=== PATIENT | male | born 1980 | race Caucasian/White ===

== ENCOUNTER 2016-12-29 16:26 | Emergency (ER) | payer MEDICAID ==
[~2016-12-29] VITALS: Ht 175.3 cm; Wt 70.0 kg
[2016-12-29] MEDS ORDERED: IBUPROFEN800 MG PO (17:21)
--- NOTE | 2016-12-29 17:21 | Urgent Treatment Center Report ---
History of Present Issue Date/Time Seen by Provider 12/29/16 1708 Visit Reason Pt arrived:Walked Presenting Problem:PT C/O LEFT KNEE PAIN. PT ADVISES HE WAS HELPING SOMEONE MOVE 3 DAYS AGO AND IT HAS BEEN INCREASING IN PAIN SINCE Location if Accident: Onset of symptoms date/time:/ or onset unknown for:MEDICAL HX UNKNOWN Have you (or family members/close friends) recently traveled outside the [place]? N If Yes, where/when: Have you had exposure to infectious disease within the past month? TB? Other? Specify: Patient state that he is having pain in his left knee area after he thinks he may have strained it helping a friend move 3-4 days ago. State that it started hurting then and has continued to get worse over the last 3 days ALLERGIES Coded Allergies: No Known Allergies (12/29/16) History Medical History General CAD? No Angina: No MS: No Hypertension? No Hyperlipidemia? No CHF? No DVT? No PE? No COPD? No Asthma? No Anemia? No GERD? No Gastric ulcers? No GI Bleed? No Hernia? No Thyroid Problems? No Hypothyroidism? No CVA? No Seizures? No Diabetes? No Renal Insuffiency? No UTI? No Stones? No BPH? No GB Disease: No Nephritic Syndrome? No Asplenia? No Hepatitis? No Sickle Cell Disease? No Arthritis? No Migraines? No Cataracts? No Glaucoma? No MRSA? No HIV? No TB? No Anxiety? No Depression? No Cancer? No More? No Immunization HX DT/Tetanus Unknown Surgical Hx Previous Surgery?N Social History Smoking Hx Smoker: Current Every Day Smoker Tobacco: Yes Type Cigarettes Alcohol Alcohol: No Review of Systems All Other Systems Reviewed and Negative Comment Pain in left knee for 3 days after helping someone move. Not sure if he may have pulled something but now having pain in knee when he bears weight that shoots up side of knee into leg Physical Exam Vital Signs Vital Signs Date Time Temp Pulse Resp B/P Pulse O2 O2 Flow FiO2 Ox Delivery Rate 12/29 1640 99.2 88 20 141/90 98 n (DICK OLIVEIRA, MARLENI) General Appearance normal appearance, WD/WN, no apparent distress Respiratory Status Yes: trachea midline, chest symmetrical, non tender chest. No: respiratory distress. Cardiovascular normal exam, regular rate/rhythm, no peripheral edema, no gallop Extremities Pain in left knee, no discoloration, no swelling noted Neurologic alert, cytogenetics laboratory manager II-XII nml as tested, normal exam, no motor/sensory deficits, oriented x 3 Comments denies injury, denies falling Medical Decision Making LABS/Meds/Orders Pt receiving controlled substance in ED? No Results/Orders Orders Procedure Date/time Status UTC STABILIZE JOINT/AREA 12/30 1715 Active KNEE-3 VIEWS-LT 12/29 1643 Active Departure Departure Time of Disposition 1715 Disposition DC Home or Self Care(routine) Clinical Impression Primary Impression: Knee pain Qualifiers: Laterality: left Chronicity: acute Qualified Code: M25.562 - Pain in left knee Condition STABLE Referrals Aubrey Mccall MD: 2 Days-Call Office Call for appointment if no improvement in symptoms or worsening of symptoms AGATA CARY, TITI SKINNER: 2 Days-Call Office Call for appointment if no improvement or worsening of knee pain Patient Instructions DI for Knee Pain Additional Instructions Follow up with family doctor Return if needed If no improvement or worsening of symptoms. call orthopedics for appointment and number for Dr Olivares and Dr Soler provided in discharge summary *RICE, Rest the extremity, Ice 15-20 minutes 3-4 times daily, Compress- wear the kit wrap as discussed as much as possible to help reduce swelling and pain, Elevate the extremity when at rest *Kit wrap is for support and help control swelling, use it except in the shower. Be sure that is not to tight but not to loose either *Elevate when resting *Ibuprofen 800mg every 6-8 hours as needed for pain an inflammation. If need something more can take Tylenol in between doses of Ibuprofen to help Immediately follow up for new or worsening of symptoms, or no noticeable improvement over the next 3-5 days Discharge Counseling Counseled pt/family regarding diagnosis, medications/RX, home care, follow up needs Prescriptions Current Visit Scripts Ibuprofen (Ibuprofen 800MG) 800 MG PO QIDP PRN pain #30 TAB at 3243
[2016-12-29 17:33] VITALS: BP 141/90
--- NOTE | 2016-12-30 08:18 | RADIOLOGY REPORT PS360 ---
KNEE-3 VIEWS-LT HISTORY: Left knee pain PAIN SINCE MOVING STUFF 3 DAYS AGO ORDERING PHYSICIAN: ARIEL JENNINGS APRN PATIENT AGE: 36 years COMPARISON: None FINDINGS: No fracture or dislocation. No lytic or blastic change. Normal mineralization. No significant arthritic changes evident. No other significant findings IMPRESSION: Negative left Knee
--- OUTSIDE RECORDS SUMMARY | 2017-01-05 03:38 | External Medical Summary Rpt ---
Author Author , Organization [employer] Address Unknown Phone Unavailable Care Team Providers Care Battery Engineer Name Role Phone [facility], Unavailable Unavailable [facility], KRISTI Unavailable Unavailable REG JADEN JEA, JADEN Unavailable Unavailable [facility] Unavailable Unavailable [facility], [facility], Unavailable Unavailable [facility] Purpose Continuity of Care Document - 02-12-2014 through 2016 Problems Code Diagnosis DOS Provider Status K529 NONINFECTIV 06-01-2015 [facility] E N EMERGENCY GASTROENTER PHYS ITIS & COLITIS UNS R1013 EPIGASTRIC 06-01[facility] [place] [facility] R1032 LEFT LOWER 06-01-2015 [facility] QU[facility] N EMERGENCY PAIN PHYS R110 NAUSEA 06-01-2015 [facility] N EMERGENCY PHYS 73328 UNSPECIFIED 02-12-2014 [facility] INFECTIVE N EMERGENCY OTITIS PHYS EXTERNA Procedures Procedure [place] [address] [facility] 5 RADIOLOGY LD IV ALL PELVIS W/CONTRAS T MATERIAL DRAINAGE 625[address] [facility] JADEN EXTERNAL 4 [facility] JEA EAR EMERGENCY ABSCESS/H PHYS EMATOMA SIMPLE Encounters Encounter Start End Date Code Location Performer Type Date EMERGENCY [address] [facility] DEPT 5 5 [facility] REG VISIT EMERGENCY HIGH PHYS SEVERITY& THREAT [facility] EMERGENCY 54[address] [facility] JADEN 4 4 [facility] JEA DEPARTMEN EMERGENCY T VISIT PHYS MODERATE SEVERITY
--- OUTSIDE RECORDS SUMMARY | 2017-01-05 03:38 | External Medical Summary Rpt ---
Author Author TANISHA Rivera, TANISHA Production Organization [employer] Address Unknown Phone Unavailable
--- OUTSIDE RECORDS SUMMARY | 2017-01-05 03:38 | External Medical Summary Rpt ---
Author Author , Organization [employer] Address Unknown Phone Unavailable Care Team Providers Care Grey Percher Name Role Phone [facility], Unavailable Unavailable [facility], KRISTI Unavailable Unavailable REG JADEN JEA, JADEN Unavailable Unavailable [facility] Unavailable Unavailable EMERGENCY PHYS, [facility] EMERGENCY PHYS [facility], Unavailable Unavailable [facility] Purpose Continuity of Care Document - 02-12-2014 through 2016 Problems Code Diagnosis DOS Provider Status K529 NONINFECTIV 06-01-2015 [facility] E N EMERGENCY GASTROENTER PHYS ITIS & COLITIS UNS R1013 EPIGASTRIC 06-01-2015 [facility] R1032 LEFT LOWER 06-01-2015 [facility] QUADRANT N EMERGENCY PAIN PHYS R110 NAUSEA 06-01-2015 [facility] N EMERGENCY PHYS 41513 UNSPECIFIED 02-12-2014 [facility] INFECTIVE N EMERGENCY OTITIS PHYS EXTERNA Procedures Procedure [place] [address] [facility] 5 RADIOLOGY LD IV ALL PELVIS W/CONTRAS T MATERIAL DRAINAGE 667[address] [facility] JADEN EXTERNAL 4 [place] JEA EAR EMERGENCY ABSCESS/H PHYS EMATOMA SIMPLE Encounters Encounter Start End Date Code Location Performer Type Date EMERGENCY [address] [facility] DEPT 5 5 [place] REG VISIT EMERGENCY HIGH PHYS SEVERITY& THREAT [facility] EMERGENCY [address] [facility] JADEN 4 4 [place] JEA DEPARTMEN EMERGENCY T VISIT PHYS MODERATE SEVERITY
--- OUTSIDE RECORDS SUMMARY | 2017-01-05 03:38 | External Medical Summary Rpt ---
Author Author , Organization [employer] Address Unknown Phone Unavailable Care Team Providers Care Abrasive Mixer Helper Name Role Phone [facility], Unavailable Unavailable [facility], KRISTI Unavailable Unavailable REG JADEN JEA, JADEN Unavailable Unavailable [facility] Unavailable Unavailable EMERGENCY PHYS, [facility] EMERGENCY PHYS [facility], Unavailable Unavailable [facility] Purpose Continuity of Care Document - 02-12-2014 through 2016 Problems Code Diagnosis DOS Provider Status K529 NONINFECTIV 06-01-2015 [facility] E N EMERGENCY GASTROENTER PHYS ITIS & COLITIS UNS R1013 EPIGASTRIC 06-01-2015 [facility] R1032 LEFT LOWER 06-01-2015 [facility] QUADRANT N EMERGENCY PAIN PHYS R110 NAUSEA 06-01-2015 [facility] N EMERGENCY PHYS 09346 UNSPECIFIED 02-12-2014 [facility] INFECTIVE N EMERGENCY OTITIS PHYS EXTERNA Procedures Procedure [place] [address] [facility] RAD[facility]OLOG[facility] LD IV ALL PELVIS W/CONTRAS T MATERIAL DRAINAGE 08480 [facility] JADEN EXTERNAL 4 [place] JEA EAR EMERGENCY ABSCESS/H PHYS EMATOMA SIMPLE Encounters Encounter Start End Date Code Location Performer Type Date EMERGENCY [address] [facility] DEPT 5 5 [place] REG VISIT EMERGENCY HIGH PHYS SEVERITY& THREAT [facility] EMERGENCY [address] [facility] JADEN 4 4 [place]LA[place] JEA DEPARTMEN EMERGENCY T VISIT PHYS MODERATE SEVERITY
--- OUTSIDE RECORDS SUMMARY | 2017-01-05 03:38 | External Medical Summary Rpt ---
Author Author , Organization [employer] Address Unknown Phone Unavailable Care Team Providers Care Manager Intelligence Name Role Phone [facility], Unavailable Unavailable [facility], KRISTI Unavailable Unavailable REG JADEN JEA, JADEN Unavailable Unavailable [facility] Unavailable Unavailable EMERGENCY PHYS, [facility] EMERGENCY PHYS [facility], Unavailable Unavailable [facility] Purpose Continuity of Care Document - 02-12-2014 through 2016 Problems Code Diagnosis DOS Provider Status K529 NONINFECTIV 06-01-2015 [facility] E N EMERGENCY GASTROENTER PHYS ITIS & COLITIS UNS R1013 EPIGASTRIC 06-01-2015 [facility] PAIN RADIOLOGY R1032 LEFT LOWER 06-01-2015 [facility] QUADRANT N EMERGENCY PAIN PHYS R110 NAUSEA 06-01-2015 [facility] N EMERGENCY PHYS 74169 UNSPECIFIED 02-12-2014 [facility] INFECTIVE N EMERGENCY OTITIS PHYS EXTERNA Procedures Procedure DOS [place] [address] [facility] RAD[facility]OLOGY LD IV ALL PELVIS W/CONTRAS T MATERIAL DRAINAGE 63886 [facility] JADEN EXTERNAL 4 [place] JEA EAR EMERGENCY ABSCESS/H PHYS EMATOMA SIMPLE Encounters Encounter Start End Date Code Location Performer Type Date EMERGENCY [address] [facility] DEPT 5 5 [place] REG VISIT EMERGENCY HIGH PHYS SEVERITY& THREAT [facility]J EMERGENCY 768[address] [facility] JADEN 4 4 [place] JEA DEPARTMEN EMERGENCY T VISIT PHYS MODERATE SEVERITY
--- OUTSIDE RECORDS SUMMARY | 2017-01-05 03:38 | External Medical Summary Rpt ---
Demographics Preferred Language Nepali Marital Status Unknown Anabaptism Affiliation Unknown Race Unknown Ethnic Group Unknown Author Author , Organization [employer] Address Unknown Phone Unavailable Purpose Continuity of Care Document - through 2016 Immunization No patient found.
--- OUTSIDE RECORDS SUMMARY | 2017-01-05 03:38 | External Medical Summary Rpt ---
Demographics Preferred Language Bengali Marital Status Unknown Yarsanism Affiliation Unknown Race Unknown Ethnic Group Unknown Author Author , Organization [employer] Address Unknown Phone Unavailable Purpose Continuity of Care Document - through 2016 Immunization No patient found.
== END 2016-12-29 17:34 | disposition home or self-care (01) ==
LOC: UTC 16:26
PROC: 2W3MX1Z Immobilization of Left Lower Extremity using Splint (ICD-10-PCS; principal; 2016-12-29)
DX: M25.562 Pain in left knee (principal)